=== PATIENT | male | born 1970 | race American Indian/Alaskan Native ===

== ENCOUNTER 2017-01-25 13:08 | Emergency (ER) | payer SELFPAY ==
--- NOTE | 2017-01-25 14:09 | Emergency Department Report ---
Chief Complaint: Shoulder Injury Stated Complaint: LEFT SHOULDER/ARM PAIN Time Seen by Provider: 01/25/17 14:07 - HPI History of Present Illness: PT c/o L shoulder pain. PT states he hurt his shoulder six weeks ago with a heavy bag at work. PT states he has not been seen about for this. - ROS Review of Systems: decrease rom to left shoulder -f/c - Exam Physical Exam: decrease rom to L shoulder MSE screening note: Focused history and physical exam performed. Due to findings the following was ordered: xr ED Disposition for MSE Condition: Stable
[2017-01-25 14:11] VITALS: BP 144/94
--- NOTE | 2017-01-25 14:56 | XRay Report ---
LEFT SHOULDER: History: Left shoulder pain. Routine views demonstrate normal bony and soft tissue structures with normal joint alignment of the shoulder. IMPRESSION: Normal study.
[2017-01-25] MEDS: TORADOL IM ONE (17:41)
--- NOTE | 2017-01-25 18:06 | Emergency Department Report ---
Entered by MARIA ISABEL CARTY, acting as scribe for RENAE VILLALTA NP. ED Upper Extremity Inj HPI - General Chief Complaint: Extremity Injury, Upper Stated Complaint: LEFT SHOULDER/ARM PAIN Time Seen by Provider: 01/25/17 14:07 Source: patient Mode of arrival: Ambulatory Limitations: No Limitations - History of Present Illness Initial Comments: This is a 46 y/o male, nontoxic, well nourished in appearance, no acute signs of distress with no significant PMHx presents with left shoulder pain that began 6 weeks ago. Patient states he injured his left shoulder while lifting a heavy bag at work and placing it in a truck. Rates pain a 9/10 in severity, which he describes as aching in quality. Aggravated with movement of extremity and alleviated with immobilization. Denies numbness, tingling, fever, chills, chest pain, SOB, AGGARWAL, and dizziness. Denies being seen for left shoulder pain previously. NKDA. ONEILL Complaint: Injury to:: left, shoulder Onset/Timin -: week(s) Other Extremity Injury: Shoulder: Left Other Injuries: none Handedness: right Place: work Severity scale (0 -10): 9 Improves With: immobilization Worsens With: movement of extremity Context: injury (while lifting a heavy bag) Associated Symptoms: denies other symptoms. denies: weakness, numbness, neck pain, suspects foreign body, nausea/vomiting, heard/felt popping sensat - Related Data Previous Rx's Medication Instructions Recorded Last Taken Type Cyclobenzaprine [Flexeril] 10 mg PO TID PRN #15 tablet 01/25/17 Unknown Rx Ibuprofen [Motrin 600 MG tab] 600 mg PO Q8H PRN #30 tablet 01/25/17 Unknown Rx Allergies Allergy/AdvReac Type Severity Reaction Status Date / Time No Known Allergies Allergy Unverified 01/25/17 14:11 ED Review of Systems Comment: All other systems reviewed and negative Constitutional: denies: chills, fever Eyes: denies: eye pain, eye discharge, vision change ENT: denies: ear pain, throat pain Respiratory: denies: cough, orthopnea, shortness of breath, SOB with exertion, SOB at rest, stridor, wheezing Cardiovascular: denies: chest pain, palpitations, dyspnea on exertion, orthopnea , edema, syncope, paroxysmal nocturnal dyspnea Endocrine: no symptoms reported Gastrointestinal: denies: abdominal pain, nausea, vomiting, diarrhea Genitourinary: denies: urgency, dysuria Musculoskeletal: arthralgia (LT shoulder pain). denies: back pain, joint swelling, myalgia Skin: denies: rash, lesions Neurological: denies: headache, weakness, numbness, paresthesias, confusion, abnormal gait, vertigo Psychiatric: denies: anxiety, depression Hematological/Lymphatic: denies: easy bleeding, easy bruising ED Past Medical Hx - Past Medical History Previous Medical History?: No - Surgical History Past Surgical History?: No - Family History Family history: no significant - Social History Smoking Status: Former Smoker Substance Use Type: None - Medications Home Medications: Home Medications Medication Instructions Recorded Confirmed Last Taken Type Cyclobenzaprine [Flexeril] 10 mg PO TID PRN #15 tablet 01/25/17 Unknown Rx Ibuprofen [Motrin 600 MG tab] 600 mg PO Q8H PRN #30 tablet 01/25/17 Unknown Rx ED Physical Exam - General Limitations: No Limitations General appearance: alert, in no apparent distress - Head Head exam: Present: atraumatic, normocephalic - Eye Eye exam: Present: normal appearance, PERRL, EOMI. Absent: scleral icterus, conjunctival injection, nystagmus, periorbital swelling, periorbital tenderness Pupils: Present: normal accommodation - ENT ENT exam: Present: normal exam, normal orophraynx, mucous membranes moist, TM's normal bilaterally, normal external ear exam - Neck Neck exam: Present: normal inspection, full ROM. Absent: tenderness, meningismus, lymphadenopathy, thyromegaly - Respiratory Respiratory exam: Present: normal lung sounds bilaterally. Absent: respiratory distress, wheezes, rales, rhonchi, stridor, chest wall tenderness, accessory muscle use, decreased breath sounds, prolonged expiratory - Cardiovascular Cardiovascular Exam: Present: regular rate, normal rhythm, normal heart sounds. Absent: bradycardia, tachycardia, irregular rhythm, systolic murmur, diastolic murmur, rubs, gallop - GI/Abdominal GI/Abdominal exam: Present: soft, normal bowel sounds. Absent: distended, tenderness, guarding, rebound, rigid - Rectal Rectal exam: Present: deferred - Extremities Exam Extremities exam: Present: full ROM (limited LT shoulder ROM secondary to pain) , tenderness (LT shoulder), normal capillary refill. Absent: normal inspection , pedal edema, joint swelling, calf tenderness - Expanded Upper Extremity Exam Left General: Present: normal inspection. Absent: laceration, abrasion, nail injury (#), foreign body, amputation, avulsion Shoulder Exam: Present: full ROM (limited LT shoulder ROM secondary to pain), tenderness (LT shoulder). Absent: normal inspection, swelling, abrasion, laceration, ecchymosis, deformity, crepidus, dislocation, erythema, tenderness over AC joint Upper Arm exam: Present: normal inspection, full ROM. Absent: tenderness, swelling, abrasion, laceration, ecchymosis, deformity, crepidus, dislocation, erythema Elbow exam: Present: normal inspection, full ROM. Absent: tenderness, swelling , abrasion, laceration, ecchymosis, deformity, crepidus, dislocation, erythema, effusion, pain w/ pronation/supination, tenderness over radial head Forearm Wrist exam: Present: normal inspection, full ROM. Absent: tenderness, swelling, abrasion, laceration, ecchymosis, deformity, crepidus, dislocation, erythema, tenderness over anatomical snuff box, pain with axial thumb loading Hand Wrist exam: Present: normal inspection, full ROM. Absent: tenderness, swelling, abrasion, laceration, ecchymosis, deformity, crepidus, dislocation, erythema, amputation, nail avulsion, subungual hematoma Neuro motor exam: Present: wrist extension intact, thumb opposition intact, thumb IP flexion intact, thumb adduction intact, fingers 2-5 abduction intact Neurosensory exam: Present: 2-point discrimination, radial nerve intact Vascular: Present: normal capillary refill, radial pulse (2+), brachial pulse, ulnar pulse. Absent: vascular compromise, Pallo, pulse deficit radial art - Back Exam Back exam: Present: normal inspection, full ROM. Absent: tenderness, CVA tenderness (R), CVA tenderness (L), muscle spasm, paraspinal tenderness, vertebral tenderness, rash noted - Neurological Exam Neurological exam: Present: alert, oriented X3, CN II-XII intact, normal gait, reflexes normal. Absent: motor sensory deficit - Psychiatric Psychiatric exam: Present: normal affect, normal mood - Skin Skin exam: Present: warm, dry, intact. Absent: rash - Other Other exam information: Negative drop arm test. ED Course Vital Signs 09/05/17 14:09 Temperature 98.1 F Pulse Rate 57 L Respiratory 18 Rate Blood Pressure 144/94 O2 Sat by Pulse 100 Oximetry - Reevaluation(s) Reevaluation #1: 01/25/17 17:36 Patient is speaking in full sentences with no distress noted ED Medical Decision Making - Medical Decision Making 46-year-old male that presents with left shoulder strain. X-rays did obtain indicated by radiologist with impression of normal exam. There is no findings or any abnormalities. Patient was notified of x-ray findings. Patient was instructed to follow-up with the orthopedic doctor in 3-5 days for possible of further evaluation such as MRI or symptoms such as numbness, tingling or any worsening symptoms return to emergency room as soon as possible. Patient received a shoulder immobilizer. He was instructed to rest, elevate and ice extremity. Patient received Flexeril and ibuprofen and was instructed not to operate any machinery while taking Flexeril due to drowsiness. At time time of discharge, the patient does not seem toxic or ill in appearance. No acute signs of distress noted. Patient agrees to discharge treatment plan of care. No further questions noted by the patient. ED Disposition Clinical Impression: Left shoulder strain Qualifiers: Encounter type: initial encounter Qualified Code(s): S46.912A - Strain of unspecified muscle, fascia and tendon at shoulder and upper arm level, left arm , initial encounter Disposition: - TO HOME OR SELFCARE Is pt being admited?: No Does the pt Need Aspirin: No Condition: Stable Instructions: Shoulder Sprain (ED), Ibuprofen (By mouth), Cyclobenzaprine (By mouth), RICE Therapy (ED) Additional Instructions: follow-up with the orthopedic doctor in 3-5 days for possible of further evaluation such as MRI or symptoms such as numbness, tingling or any worsening symptoms return to emergency room as soon as possible. Take ibuprofen and Flexeril as prescribed. Do not operate heavy machinery while taking Flexeril due to sedation Prescriptions: Cyclobenzaprine [Flexeril] 10 mg PO TID PRN #15 tablet PRN Reason: Muscle Spasm Ibuprofen [Motrin 600 MG tab] 600 mg PO Q8H PRN #30 tablet PRN Reason: Pain Referrals: PRIMARY MD JOE [Primary Care Provider] - 3-5 Days MANINDER BEJARANO MD [Staff Physician] - 3-5 Days [facility] [Outside] - 3-5 Days [facility] [Outside] - 3-5 Days Forms: Work/School Release Form(ED) This documentation as recorded by the CARLOZ mena JASMINE,accurately reflects the service I personally performed and the decisions made by me,RENAE VILLALTA, [employer] OPERATOR.
== END 2017-01-25 17:51 | disposition home or self-care (01) ==
LOC: ED 13:08
DX: S46.912A Strain of unspecified muscle, fascia and tendon at shoulder and upper arm level, left arm, initial encounter (principal); Z87.891 Personal history of nicotine dependence; X50.0XXA Overexertion from strenuous movement or load, initial encounter; Y93.89 Activity, other specified; Y92.89 Other specified places as the place of occurrence of the external cause; Y99.8 Other external cause status
CPT/HCPCS: 29105; 73030; 96372; 99283; J1885